=== PATIENT | male | born 1945 | race Caucasian/White ===

== ENCOUNTER 2021-01-31 06:11 | Outpatient (CLI) | payer MEDICARE, OTHER ==
[~2021-01-31] VITALS: Ht 180.3 cm; Wt 108.5 kg
[2021-02-01] MEDS ORDERED: CARV25TA PO (12:45)
[2021-02-01] MEDS ORDERED: CALC-822 PO (12:45)
[2021-02-01] MEDS ORDERED: CLN.1T PO (12:45)
[2021-02-01] MEDS ORDERED: OMEP20CA18 PO (12:45)
[2021-02-01] MEDS ORDERED: ASPI-999 PO (12:45)
[2021-02-01] MEDS ORDERED: ENAL20TA16 PO (12:45)
[2021-02-01] MEDS ORDERED: POTA10CA43 PO (12:45)
[2021-02-01] MEDS ORDERED: MULT-610 PO (12:45)
[2021-02-01] MEDS ORDERED: SLOW RELEASE IRON PO (12:45)
[2021-02-01] MEDS ORDERED: MELO15TA39 PO (12:45)
[2021-02-01] MEDS ORDERED: DOXA2TAB2 PO (12:45)
[2021-02-01] MEDS ORDERED: GLUC1CAP37 PO (12:45)
[2021-02-01] MEDS ORDERED: AMLO-250 PO (12:45)
[2021-02-01] MEDS ORDERED: ATOR40TA70 PO (12:45)
[2021-02-01] MEDS ORDERED: HYDR25TA4 PO (12:45)
[2021-02-01] MEDS ORDERED: CYCL10TA9 PO (12:45)
== END 2021-02-01 12:58 | disposition home or self-care (01) ==
LOC: PREOP 06:11
PROVIDERS: ATTEND Radiology Radiation Oncology
DX: C61 Malignant neoplasm of prostate (principal)

== ENCOUNTER 2021-02-07 10:30 | Day surgery (SDC) | payer MEDICARE, OTHER ==
[2021-02-07] VITALS (10 sets, daily range): BP systolic 112–169; BP diastolic 68–84
[~2021-02-07] VITALS: Ht 180.3 cm; Wt 108.5 kg
[~2021-02-07 10:30] MED LIST: AMLO-250 PO; ASPI-999 PO; ATOR40TA70 PO; CALC-822 PO; CARV25TA PO; CLN.1T PO; CYCL10TA9 PO; DOXA2TAB2 PO; ENAL20TA16 PO; GLUC1CAP37 PO; HYDR25TA4 PO; MELO15TA39 PO; MULT-610 PO; OMEP20CA18 PO; POTA10CA43 PO; SLOW RELEASE IRON PO
--- NOTE | 2021-02-07 10:32 | Progress Note-Pre Operative ---
Pre-Operative Progress Note H&P Reviewed The H&P was reviewed, patient examined and no changes noted. Date Seen by Provider: Feb 07, 2021 Time Seen by Provider: : Date H&P Reviewed: Feb 07, 2021 Time H&P Reviewed: : Pre-Operative Diagnosis: Prostate cancer cT1c, PSA 8.66, [place] 7 (3+4) DOV OLIVEIRA MD Feb 07, 2021 10:32
[2021-02-07] MEDS ORDERED: ACET1TAB43 PO (10:36)
[2021-02-07] MEDS ORDERED: CIPR-226 PO (10:36)
--- NOTE | 2021-02-07 10:39 | Discharge Inst-Simple/Standard ---
Discharge Inst-Standard Reconcile Patient Problems Problems Reviewed?: Yes Discharge Medications New, Converted or Re-Newed RX: RX Given to Pt/Family Patient Instructions/Follow Up Plan of Care/Instructions/FU: 1)One month post implant scan at [facility] cancer center 03/06/21 at 10:00 a.m. 2)One month follow up with Dr. Valverde 03/09/21 at 8:45 a.m. Activity as Tolerated: Yes Discharge Diet: No Restrictions Other Inst to Patient Please instruct patient on catheter care and give leg bag to take home. He already has an appointment for don catheter removal on Friday02/12/21 at 8:00 a.m. - Dr. Valverde's office. DOV OLIVEIRA MD Feb 07, 2021 10:39
[2021-02-07] MEDS ORDERED: LACTATED RINGERS 1,000 ML IV PRN (11:30)
[2021-02-07] MEDS ORDERED: proPOfol 200 MG/20 ML (DIPRIVAN) VIAL IV ONE (11:44)
[2021-02-07] MEDS ORDERED: LIDOCAINE PF 2% 5 ML (XYLOCAINE) VIAL ONE (11:44)
[2021-02-07] MEDS ORDERED: ONDANSETRON 4 MG/2 ML (SDV) Z0FRAN ONE (11:44)
[2021-02-07] MEDS ORDERED: fentaNYL INJ 100 MCG/2 ML AMP ONE (11:45)
[2021-02-07] MEDS ORDERED: SEVOFLURANE (ULTANE) 15 ML INHAL SOLN ONE ×3 (11:45→13:28)
[2021-02-07] MEDS ORDERED: BACITRACIN OINTMENT 28 GM TUBE ONE (12:27)
[2021-02-07] MEDS ORDERED: HYDROmorphone 2 MG/ML VIAL (DILAUDID) IV ONE (14:00)
[2021-02-07] MEDS ORDERED: ONDANSETRON 4 MG/2 ML (SDV) Z0FRAN IVP PRN (14:00)
--- NOTE | 2021-02-07 14:07 | Diagnostic Imaging Report ---
INDICATION: Brachytherapy. Prostate cancer. COMPARISON: None. TOTAL FLUOROSCOPY TIME: 20 seconds. TOTAL NUMBER OF FLUOROSCOPIC IMAGES SAVED: 1. FINDINGS: A single intraoperative image intensifier view of the pelvis was obtained. Shrestha catheter is seen within the urinary bladder. Multiple metallic beads are identified projecting over the pubic symphysis. Please note, the interpreting radiologist was not present during the procedure. IMPRESSION: Fluoroscopic guidance provided intraoperatively. Dictated by: Dictated on workstation # [id number]
--- NOTE | 2021-02-07 14:09 | Progress Note-Post Operative ---
Post-Operative Progess Note Surgeon (s)/Ep Tech (s) Surgeon DOV OLIVEIRA MD Ep Tech: Mauro PALAFOX MD Pre-Operative Diagnosis Prostate cancer cT1c, PSA 8.66, [place] 7 (3+4) Post-Operative Diagnosis Same as preop Procedure & Operative Findings Date of Procedure 02/07/21 Procedure Performed/Findings (1) 100% Cesium 131 permanent prostate seed implant (2) Injection of biodegradable hydrogel prostate-rectal spacer utilizing the SpaceOAR system (3) Cystogram Prostate volume 40.9 cc Anesthesia Type General Estimated Blood Loss Estimated blood loss (mL): Minimal Specimens/Packing Specimens Removed None Packing: N/A DOV OLIVEIRA MD Feb 07, 2021 14:09
--- NOTE | 2021-02-07 14:20 | Anesthesia-General Post-Op ---
General Patient Condition Mental Status/LOC: Same as Preop Cardiovascular: Satisfactory Nausea/Vomiting: Absent Respiratory: Satisfactory Pain: Controlled Complications: Absent Post Op Complications Complications None Follow Up Care/Instructions Patient Instructions None needed. Anesthesia/Patient Condition Patient Condition Patient is doing well, no complaints, stable vital signs, no apparent adverse anesthesia problems. No complications reported per nursing. D/C home per [facility] Criteria: Yes ALYSSIA CORBETT CRNA Feb 07, 2021 14:20
== END 2021-02-07 15:45 | disposition home or self-care (01) ==
LOC: SDC 10:30
PROVIDERS: ATTEND Radiology Radiation Oncology
DX: C61 Malignant neoplasm of prostate (principal); E78.00 Pure hypercholesterolemia, unspecified; I10 Essential (primary) hypertension; E78.5 Hyperlipidemia, unspecified; E66.9 Obesity, unspecified; M19.90 Unspecified osteoarthritis, unspecified site; J30.9 Allergic rhinitis, unspecified; Z85.828 Personal history of other malignant neoplasm of skin; Z90.89 Acquired absence of other organs; Z88.1 Allergy status to other antibiotic agents; Z98.52 Vasectomy status; Z79.82 Long term (current) use of aspirin; Z79.899 Other long term (current) drug therapy; Z68.33 Body mass index [BMI] 33.0-33.9, adult
CPT/HCPCS: 55874; 55876; 76000; 76965; 77290; 77318; 77332; 77370; 77470; 77778; 87081; C1715 ×2; C1889; C2643

== ENCOUNTER 2021-03-06 09:55 | Outpatient (RCR) | payer MEDICARE, OTHER ==
[~2021-03-06 09:55] MED LIST changes: +ACET1TAB43 PO; +CIPR-226 PO
== END 2021-04-02 | disposition home or self-care (01) ==
LOC: ONC 09:55
PROVIDERS: ATTEND Radiology Radiation Oncology
DX: C61 Malignant neoplasm of prostate (principal); E78.00 Pure hypercholesterolemia, unspecified; I10 Essential (primary) hypertension
CPT/HCPCS: 76873; G0463; 77290; 99205

== ENCOUNTER 2021-04-20 02:45 | Outpatient (RCR) | payer MEDICARE, OTHER | END 2021-07-19 | disposition home or self-care (01) | LOC: ONC 02:45 | PROVIDERS: ATTEND Radiology Radiation Oncology | DX: Z51.0 Encounter for antineoplastic radiation therapy (principal); C61 Malignant neoplasm of prostate; E78.00 Pure hypercholesterolemia, unspecified; I10 Essential (primary) hypertension; J30.9 Allergic rhinitis, unspecified | CPT/HCPCS: 77295 ==

== ENCOUNTER 2021-08-02 10:57 | Outpatient (RCR) | payer MEDICARE, OTHER ==
[~2021-08-02 10:57] MED LIST changes: +CYCL10TA25 PO; -CYCL10TA9 PO
== END 2021-10-26 | disposition home or self-care (01) ==
LOC: ONC 10:57
PROVIDERS: ATTEND Radiology Radiation Oncology
DX: C61 Malignant neoplasm of prostate (principal); E78.00 Pure hypercholesterolemia, unspecified; I10 Essential (primary) hypertension; M19.90 Unspecified osteoarthritis, unspecified site; Z90.89 Acquired absence of other organs
CPT/HCPCS: 99213